=== PATIENT | female | born 1965 | race Caucasian/White ===

== ENCOUNTER 2016-10-31 05:59 | Emergency (ER) | payer MEDICARE, MEDICAID ==
[2016-10-31] MEDS ORDERED: PANTOPRAZOLE SODIUM 80 MG in NORMAL SALINE 100 ML IV ONE (06:03)
[2016-10-31] MEDS ORDERED: NORMAL SALINE 1,000 ML IV ONE (06:03)
--- NOTE | 2016-10-31 06:13 | ERNOTE ---
GI Bleeding/Rectal Pain ER Date of Service: 10/31/16 Time Seen by Provider: 10/31/16 06:01 Allergies/Adverse Reactions: Allergies codeine Allergy (Verified 10/31/16 06:12) Hives Home Medications: HOME MEDICATIONS Acetaminophen [Extra Strength Non-Aspirin] 500 mg PO QID 10/31/16 [Last Taken Unknown] Amino Acids/Protein Hydrolys [Pro-Stat Liquid] 30 ml PO BID 10/31/16 [Last Taken Unknown] Citalopram Hydrobromide [Citalopram HBr] 40 mg PO DAILY 10/31/16 [Last Taken Unknown] Docusate Sodium [Doc-Q-Lace] 200 mg PO BID 10/31/16 [Last Taken Unknown] Ferrous Gluconate 324 mg PO DAILY 10/31/16 [Last Taken Unknown] Metoprolol Tartrate [Lopressor] 25 mg PO BID 10/31/16 [Last Taken Unknown] Morphine Sulfate [Morphine Sulfate Conc. Oral Solution] 0.25 ml PO Q4H PRN 10/31 [Last Taken Unknown] Omeprazole 40 mg PO DAILY 10/31/16 [Last Taken Unknown] Ondansetron HCl [Zofran] 8 mg PO TID PRN 10/31/16 [Last Taken Unknown] Polyethylene Glycol 3350 [Purelax] 17 gm PO DAILY 10/31/16 [Last Taken Unknown] Potassium Chloride [K-Dur] 10 meq PO TID 10/31/16 [Last Taken Unknown] Prochlorperazine Maleate [Compazine] 10 mg PO Q6H PRN 10/31/16 [Last Taken Unknown] Narrative: This is a 50-year-old female coming from the detention. The patient is in the detention because she has a gluteal/sacral decubitus. She is not sure why she developed this. The patient comes in with bright red blood per rectum which started last night around midnight. The patient has a history of lung cancer and liver cancer. We do not know a primary. She has a port. She has been on chemotherapy. Patient has a history of a bowel resection. She has an ostomy. Patient states that around midnight last night she had crampy abdominal pain followed by a sudden urge to defecate. She says she does not typically have any material come from her rectum, that it all goes into the ostomy. She says that after he defecated it was blood. She reports that she feels weak. She denies chest pain or shortness of breath. She denies nausea. She denies any history of upper GI bleeding. The patient said she is continued to have blood from her rectum since that time. She is brought in by EMS. Review of Systems - Review of Systems Constitutional: Present: no symptoms reported EYE: Present: no symptoms reported ENT: Present: no symptoms reported Respiratory: Present: no symptoms reported Cardiology: Present: no symptoms reported Gastrointestinal/Abdominal: Present: See HPI, abdominal pain Genitourinary: Present: no symptoms reported Musculoskeletal: Present: no symptoms reported Skin: Present: See HPI Neurological: Present: no symptoms reported Endocrine: Present: no symptoms reported Physical Exam - Physical Exam General Appearance: Present: wd/wn, alert, no apparent distress, other - pale woman laying on her right side in no apparent distress, cooperative Head Exam: Present: normal inspection, no evidence of injury Eye Exam: Normal inspection: bilateral, PERRL: bilateral, EOMI: bilateral Ears, Nose, Throat: Present: normal ENT inspection Neck: Present: normal inspection, nontender Respiratory: Present: no respiratory distress, normal breath sounds, lungs clear Cardiovascular/Chest: Present: regular rate, rhythm, other - heart is tachycardic around 120. I hear no ectopy. Regular rate and rhythm Gastrointestinal/Abdominal: Present: other - patient has an ostomy present just to the right of the midline in the mid abdomen. There is blood coming from this. It is darker blood. The mucosa of the ostomy is normal. Patient's abdomen is soft. Bowel sounds are slightly hyperactive. No significant discomfort. Rectal Exam: Present: other - grossly positive blood from the rectum. True rectal exam is deferred Back Exam: Present: normal inspection, normal range of motion, no CVA tenderness , no vertebral tenderness Extremity Exam: Present: normal inspection, non-tender, no edema Neurological Exam: Present: alert, oriented, normal mood/affect, no motor/ sensory deficits Skin Exam: Present: other - patient has a stage 3/4 decubitus ulcer present just to the left of the midline around L5-S1 level. It is well granulating. There is no purulent drainage. Odor is normal. Lymphatic Exam: Present: no adenopathy ED Progress - Results and Orders Patient's Lab Results:: I have reviewed the patient's lab results. - Vital Signs Patient's Vital Signs:: I have reviewed the patient's vital signs. - Progress/Reassessment Progress:: Unchanged Progress Note-Subjective: 10/31/16 07:26 Discussed with ERP, Scooter Martini who has graciously accepted patient in transfer Plan - Plan Plan: This is a 50-year-old female coming in with bright red blood from her rectum. She has small amount of blood in her ostomy. Therefore the site of bleeding is almost certainly above the ostomy site. She has no history of upper GI bleeding but she does have suspected cancer in her liver. She may have a clotting disorder. She will need an NG tube to look for upper bleeding. If this lavage is negative NG tube will be removed. She is given Protonix IV. She is being resuscitated using 2 L of normal saline. 2 peripheral large bore IVs are in place. I've type and crossed her. Once she is hemodynamically stabilized she will need to be evaluated by surgery or transferred somewhere for GI. She will need a scope today. Departure Clinical Impression: GI bleed - Departure Disposition: [facility] Condition: Serious Referrals: Jose Oates MD [Primary Care Provider] - - Critical Care Total Time (mins): 35 Critical Care: management of severe GI bleed with HD instability
[2016-10-31 06:25] LABS: Hematocrit 29.8 % (37.0-47.0); Hemoglobin 8.9 gm/dL (12.5-16.0); Mean Cell Volume 96.4 fl (78-100); Mean Corpuscular Hemoglobin 28.8 pg (27-31); Mean Corpuscular Hgb Conc 29.9 g/dl (32-36); Mean Platelet Volume 8.4 fl (6.0-9.5); Platelet Count 267 K/mm3 (150-450); Red Blood Count 3.09 M/mm3 (4.2-5.4); Red Cell Distribution Width 18.2 % (11.5-14.0); White Blood Count 7.5 K/mm3 (4.0-10.5)
[2016-10-31 06:27] LABS: Total Cells Counted 100
[2016-10-31 06:35] LABS: Prothrombin Time (Patient) 12.2 Seconds (9.4-11.4)
[2016-10-31 06:38] LABS: INR 1.17 INR (0.90-1.10)
[2016-10-31 06:47] LABS: Albumin * 1.8 gm/dl (3.4-5.0); Anion Gap 14.4 mmol/L (6.8-13.8); Bilirubin, Total 0.3 mg/dL (0.0-1.1); Ca. Corrected For Albumin 10.4 mg/dL (8.4-10.2); Carbon Dioxide 26.6 mmol/L (24-32.6); Total Protein 6.8 gm/dL (6.2-8.2)
[2016-10-31] MEDS ORDERED: HYDROmorphone HCL 1 MG/ML DISP.SYRIN IV ONE (06:55)
[2016-10-31] MEDS ORDERED: HYDROmorphone HCL 1 MG/ML DISP.SYRIN ONE (06:57)
[2016-10-31 07:04] LABS: Band 4 % (0-2.0); Eosinophil 1 % (0-3); Lymphocyte 9 % (20-51); Monocyte 6 % (0-9); Neutrophil 80 % (42-75); Platelet Estimate Normal (NORMAL)
[2016-10-31 07:05] LABS: Hypochromia Trace
[2016-10-31 08:28] VITALS: BP 139/74
== END 2016-10-31 08:22 | disposition short-term general hospital (02) ==
LOC: ER 05:59
DX: K92.2 Gastrointestinal hemorrhage, unspecified (principal); Z85.118 Personal history of other malignant neoplasm of bronchus and lung; Z85.05 Personal history of malignant neoplasm of liver; Z92.21 Personal history of antineoplastic chemotherapy; Z93.3 Colostomy status
CPT/HCPCS: 36415; 80053; 85025; 85610; 86850; 86900; 96365; 96375; 99291; P9016